=== PATIENT | male | born 1990 | race Asian ===

== ENCOUNTER 2019-08-01 16:04 | Emergency (ER) | payer SELFPAY ==
[2019-08-01] MEDS ORDERED: Ketorolac Tromethamine 60 MG/2 ML VIAL ONE (16:55)
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
[2019-08-01 18:16] LABS: Bilirubin Negative (Negative); Blood, Urine Negative (Negative); Clarity Clear (Clear); Glucose, Urine (Dipstick) Normal (Negative); Leukocyte Negative Leu/uL (Negative); Nitrite Negative (Negative); Protein, Urine (Dipstick) Negative (Neg-Trace); Urobilinogen Normal mg/dL (Less than 2)
== END 2019-08-01 18:51 | disposition home or self-care (01) ==
LOC: ERS 16:04 → EDBD 16:04 → ERS 18:51
DX: S30.0XXA Contusion of lower back and pelvis, initial encounter (principal); M25.512 Pain in left shoulder; M79.652 Pain in left thigh; V29.9XXA Motorcycle rider (driver) (passenger) injured in unspecified traffic accident, initial encounter; F17.210 Nicotine dependence, cigarettes, uncomplicated
CPT/HCPCS: 70450; 72100; 72125; 81003; 96372; J1885

== ENCOUNTER 2022-08-14 16:55 | Emergency (ER) | payer SELFPAY, OTHER ==
[2022-08-14] MEDS ORDERED: Ketorolac Tromethamine 30 MG/ML VIAL ONE (17:49)
[2022-08-14] MEDS ORDERED: Cyclobenzaprine 10 MG TAB ONE (17:49)
== END 2022-08-14 19:04 | disposition home or self-care (01) ==
LOC: ERS 16:55
DX: S46.912A Strain of unspecified muscle, fascia and tendon at shoulder and upper arm level, left arm, initial encounter (principal); S46.212A Strain of muscle, fascia and tendon of other parts of biceps, left arm, initial encounter; F17.210 Nicotine dependence, cigarettes, uncomplicated; V89.2XXA Person injured in unspecified motor-vehicle accident, traffic, initial encounter
CPT/HCPCS: 71046; 96372; J1885